=== PATIENT | female | born 1960 | race Hispanic/Latino ===

== ENCOUNTER → 2017-07-16 | Outpatient (CLI) | payer OTHER ==
[~2017-07-16] MED LIST: Z CIPRO PO; Z.0.LOSARTAN-HCTZ1 E PO; Z.0.METRONIDAZOLE500 PO
--- NOTE | 2017-07-16 11:01 | Diagnostic Imaging Report ---
PROCEDURE: Frontal and lateral views of the chest. COMPARISON: Chest 2 views 02/19/2011. INDICATIONS: CHRONIC COUGH, HX OF PNEUMONIA FINDINGS: Lines/tubes: None. Lungs: The lungs are well inflated and clear. There is no evidence of pneumonia or pulmonary edema. Pleura: There is no pleural effusion or pneumothorax. Heart and mediastinum: The heart and the mediastinum are normal. Bones: No acute bony abnormality. IMPRESSION: No acute radiographic abnormality. Dictated by: Leonidas Veras M.D. on 07/16/2017 at 11:09 Electronically approved by: Leonidas Veras M.D. on 07/16/2017 at 11:09
== END ==
LOC: RAD 10:29
PROVIDERS: ATTEND Family Medicine
DX: R05 Cough (principal)
CPT/HCPCS: 71020